=== PATIENT | female | born 1990 | race African-American/Black ===

== ENCOUNTER 2017-09-02 16:58 | Emergency (ER) | payer BC, SELFPAY ==
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
== END 2017-09-02 19:45 | disposition home or self-care (01) ==
LOC: ERS 16:58
DX: S90.32XA Contusion of left foot, initial encounter (principal); Z79.899 Other long term (current) drug therapy; V09.20XA Pedestrian injured in traffic accident involving unspecified motor vehicles, initial encounter; Y92.830 Public park as the place of occurrence of the external cause